=== PATIENT | male | born 1985 ===

== ENCOUNTER 2018-01-21 07:24 | Day surgery (SDC) | payer MEDICAID ==
[2018-01-14 10:44] VITALS: BMI 28.8
[2018-01-21] MEDS ORDERED: HYDROmorphone 0.5 mg/0.5 ml ISec IVP PRN (09:52)
[2018-01-21] MEDS ORDERED: Sodium Chloride 0.9% 1,000 ML IV SCH (10:00)
[2018-01-21] MEDS ORDERED: Propofol 10 mg/ml Inj (20 ML) ONE (10:03)
[2018-01-21] MEDS ORDERED: Bupivacaine 0.5% Inj(30mL) ONE (10:03)
[2018-01-21] MEDS ORDERED: Bacitracin Ointment 30 GM TUBE ONE (10:03)
[2018-01-21] MEDS ORDERED: Lidocaine 1% Inj (20ml) ONE (10:04)
[2018-01-21] MEDS ORDERED: Desflurane Inhalation Anesthetic Liq (240 ml) ONE (10:15)
[2018-01-21 12:19] VITALS: RESP 18; TEMP 97.7; O2SAT 99
[2018-01-21 12:53] VITALS: BP 142/69; PULSE 67
--- NOTE | 2018-01-21 22:37 | OP ---
PROCEDURE DATE: 01/21/2018 PREOPERATIVE DIAGNOSIS: Desired sterilization. POSTOPERATIVE DIAGNOSIS: Desired sterilization. PROCEDURE: Bilateral vasectomy. ATTENDING SURGEON: Dr. Boy Connelly. ANESTHESIA: General plus local. SPECIMEN: Segments of the bilateral vas deferens were sent to Pathology. DRAINS: There were none. COMPLICATIONS: There were none. OPERATIVE FINDINGS: After informed consent was obtained, the patient was taken to operative room and placed on the operating table. Anesthesia was administered. The patient was then prepped and draped in usual sterile fashion. First, the left vas deferens was palpated and advanced against the overlying left scrotal skin. The skin was infiltrated with local anesthetic and incised with a scalpel. The vas and the sheath were then delivered through the incision using the Mosquito clamp. A segment of the sheath was then sharply cleared from the vas which was then isolated between 2 Mosquito clamps. The isolated segment was then excised using the scalpel and sent to Pathology as specimen. The cut ends of the vas was then tied using 3-0 chromic ties, cauterized using electrocautery and buried in separate levels of the sheath which was closed over using interrupted 3-0 chromic suture. Inspection was then made for any bleeding points. Any bleeding points encountered were then controlled using electrocautery. When hemostasis was complete, the vas and the sheath were returned to the intrascrotal position and the skin was reapproximated using interrupted 3-0 chromic suture. At this point, the right vas deferens was palpated and advanced against the overlying right scrotal skin. A right vasectomy was performed in a similar fashion ____ described to the left side. After both incisions had been closed, a sterile dressing consisting of bacitracin ointment, sterile fluff gauze and a scrotal support was placed. The patient tolerated the procedure well. He was returned to the recovery room awake in stable condition. Boy Connelly MD
== END 2018-01-21 12:55 | disposition home or self-care (01) ==
LOC: SDS 07:24
PROVIDERS: ATTEND Urology
DX: Z30.2 Encounter for sterilization (principal)
CPT/HCPCS: 55250; 88302; J0690; J1170; J2001; J2704; J2765; J3010; J7030; J7120